=== PATIENT | male | born 1995 | race Hispanic/Latino ===

== ENCOUNTER 2018-04-11 02:59 | Emergency (ER) | payer BC, OTHER ==
[2018-04-11] MEDS ORDERED: ACETAMINOPHEN 325 MG TAB ONE (03:16)
[2018-04-11] MEDS ORDERED: LOPERAMIDE HCL 2 MG CAP PO ONE (04:35)
[2018-04-11] MEDS ORDERED: ONDANSETRON ODT 4 MG TAB ONE (04:36)
[2018-04-11] MEDS ORDERED: METOCLOPRAMIDE 10 MG TABLET ONE (04:36)
== END 2018-04-11 04:50 | disposition home or self-care (01) ==
LOC: EDH 02:59
DX: R11.2 Nausea with vomiting, unspecified (principal); R19.7 Diarrhea, unspecified